=== PATIENT | female | born 1965 | race Caucasian/White ===

== ENCOUNTER → 2018-06-23 | Outpatient (CLI) | payer BC, SELFPAY | LOC: LAB.O 07:29 | PROVIDERS: ATTEND Internal Medicine Gastroenterology | DX: R10.10 Upper abdominal pain, unspecified (principal) ==

== ENCOUNTER → 2018-12-28 | Outpatient (CLI) | payer SELFPAY ==
--- NOTE | 2018-12-29 15:22 | MRI ---
EXAM DESCRIPTION: Lumbar Spine w/o Contrast : Magnetic Resonance Imaging. CLINICAL HISTORY: DORSALGIA CHRONIC BACK PAIN COMPARISON: None. TECHNIQUE: Multiplanar, multiple standard sequences, non contrast MRI, lumbar spine. FINDINGS: L5-S1: The disc is well visualized on axial T2 series 501, image 3. Disc space preserved with minimal disc desiccation. Posterior midline hyperintense T2 annular fissure in the margin with minimal bulge into the canal. AP canal diameter 13 mm. Mild left foraminal narrowing and moderate right foraminal narrowing. Bilateral L5 pars interarticularis sclerotic and thinned. Bilateral facets and ligaments unremarkable. L4-L5: Disc desiccation and minimal disc space loss. Posterior broad-based bulge and midline protrusion 5.5 mm. Facets are negative posterior ligament thickening with AP canal diameter 9 mm. Bilateral moderate foraminal narrowing more left than right. Bilateral subarticular recess narrowing by bulging disc. Trace retrolisthesis. L3-L4: Disc desiccation and minimal disc space loss with anterior bulging and minimal endplate reaction. Posterior asymmetric bulge to the right of midline 5 mm abutting the right subarticular recess and the exiting right L3 nerve in the foramen which is nearly stenotic. Mild narrowing left foramen. Bilateral facet joint effusion and thickened ligaments. AP canal diameter 12 mm. L2-L3: Anterior disc space loss with disc desiccation and moderate endplate reactive changes and disc space loss more right than left. Posterior broad-based disc bulge 4 mm. Posterior elements unremarkable. Mild right foraminal narrowing and left foramen patent. AP canal diameter 13 mm. Minimal narrowing of the bilateral subarticular recesses. L1-L2: Disc desiccation with disc space maintained. Schmorl's node inferior left posterior L1 endplate. Posterior right paracentral 4 mm disc bulge with endplate spurs. AP canal diameter 11 mm to the right of midline. Bilateral foramina are patent. T12-L1: Conus terminates just below the disc space. Minimal disc desiccation with disc space maintained. Concavities in the superior and inferior endplates. Posterior elements unremarkable. Canal and foramina are patent. Spine is kyphotic T12-L2 and minimal levoscoliosis T12- L3. Paravertebral soft tissues negative.. Distal cord normal signal and caliber. Normal marrow signal in the remaining vertebral bodies and the posterior elements. Vertebral bodies are not compressed at any level. IMPRESSION: 1. Multiple levels of disc desiccation and bulging. Minimal disease in the facets and ligaments. Canal narrowing at multiple levels. Upper spine is kyphotic. Minimal convexity to most of the endplates and some Schmorl's nodes. 2. Desiccated L5-S1 disc with posterior annular fissure. Minimal bulging. Bilateral L5 pars are sclerotic and thinned. 3. Mild central canal stenosis multifactorial at L4-L5 with posterior midline disc protrusion. Bilateral subarticular recess narrowing. Moderate foraminal narrowing and trace retrolisthesis. 4. Posterior bulge L3-4 disc and to the right Canal and right foramen abutting the exiting right L3 nerve in the foramen. Moderate canal narrowing. 5. Posterior broad-based bulge L2-3 disc and minimal narrowing of the subarticular recesses. Mild right foraminal narrowing. 6. Right paracentral bulge of the desiccated L1-L2 disc with moderate canal narrowing to the right of midline. Electronically signed by: Angelito Molina MD 12/29/2018 3:21 PM CDT
== END ==
LOC: MRI 10:00
PROVIDERS: ATTEND Family Medicine
DX: M40.205 Unspecified kyphosis, thoracolumbar region (principal); M51.36 Other intervertebral disc degeneration, lumbar region; M51.37 Other intervertebral disc degeneration, lumbosacral region; M51.86 Other intervertebral disc disorders, lumbar region; M43.16 Spondylolisthesis, lumbar region

== ENCOUNTER → 2019-01-31 | Outpatient (CLI) | payer SELFPAY | LOC: YCFC.O 14:03 | PROVIDERS: ATTEND Family Medicine | DX: M19.90 Unspecified osteoarthritis, unspecified site (principal) ==

== ENCOUNTER → 2019-06-28 | Outpatient (CLI) | payer SELFPAY ==
--- NOTE | 2019-06-28 15:50 | RAD ---
XR CHEST 2 VIEWS HISTORY: 54 years Female DYSPNEA COMPARISON: None. TECHNIQUE: PA and lateral views of the chest. FINDINGS: Lungs: Unremarkable. Heart/Mediastinum: Unremarkable. Bones: Unremarkable. IMPRESSION: Normal chest x-ray. Electronically signed by: Jean Paul Martinez MD 06/28/2019 3:49 PM CDT
== END ==
LOC: RAD 14:39
PROVIDERS: ATTEND Family Medicine
DX: R06.00 Dyspnea, unspecified (principal)

== ENCOUNTER → 2020-03-13 | Outpatient (CLI) | payer OTHER ==
--- NOTE | 2020-03-13 15:25 | RAD ---
EXAM DESCRIPTION: Thoracic Spine,AP Lateral CLINICAL HISTORY: 54 years Female, BACK PAIN COMPARISON: None. FINDINGS: 2 views of the thoracic spine show body fracture or subluxation. No disc space narrowing. No posterior rib abnormality. IMPRESSION: Negative exam. Electronically signed by: Gustavo Teague MD 03/13/2020 3:24 PM [facility]
--- NOTE | 2020-03-13 15:25 | RAD ---
EXAM DESCRIPTION: Cervical Spine, 2-3 Views CLINICAL HISTORY: 54 years Female, NECK PAIN COMPARISON: None. FINDINGS: 3 views of the cervical spine show no prevertebral soft tissue swelling. No vertebral body fracture. Grade 1 anterolisthesis at C4-5, likely degenerative. Degenerative disc disease at C5-6 and C6-7. The spinous processes are intact. Soft tissue calcifications in both sides of the neck likely vascular. IMPRESSION: [id number] multilevel degenerative changes worse at C5-6 and C6-7. Carotid artery disease. Electronically signed by: Gustavo Teague MD 03/13/2020 3:23 PM [facility]
== END ==
LOC: YCFC.O 07:13
PROVIDERS: ATTEND Family Medicine
DX: M50.322 Other cervical disc degeneration at C5-C6 level (principal); M50.323 Other cervical disc degeneration at C6-C7 level; I25.10 Atherosclerotic heart disease of native coronary artery without angina pectoris; K52.9 Noninfective gastroenteritis and colitis, unspecified; R53.83 Other fatigue; I10 Essential (primary) hypertension; M54.6 Pain in thoracic spine; Z13.220 Encounter for screening for lipoid disorders

== ENCOUNTER → 2020-03-22 | Outpatient (CLI) | payer OTHER ==
--- NOTE | 2020-03-23 13:15 | MRI ---
EXAM DESCRIPTION: Cervical Spine: MRI. CLINICAL HISTORY: 54 years Female CERVICALGIA COMPARISON: Duplex ultrasound of the carotid and vertebral vessels on this visit. Cervical spine radiographs March 13. TECHNIQUE: Multiplanar, high-field MRI, multiple sequences, non-contrast Cervical spine. FINDINGS: C3-C4: Normal signal in the disc. Tiny posterior midline bulge. Trace anterolisthesis. Left Uncinate spur. Hypertrophic arthrosis of the facet encroaching on the left, with neuroforaminal stenosis. C4-C5: Normal signal in the disc with disc space preserved. Trace anterolisthesis and posterior bulge. The disc is abutting the cord. Hypertrophic arthrosis of the left facet joint with mild narrowing of the neural foramen. Right facet joint and right neuroforamen are patent. C5-C6: Disc desiccation and moderate to severe disc space loss and anterior. Bulging and endplate ridging. Posterior broad-based bulge abutting the cord. Mild canal narrowing. Left uncinate spur with mild to moderate narrowing left neural foramen. Bilateral facet joints are unremarkable. Right neuroforamen is patent. C6-C7: Disc desiccation moderate to severe narrowing more anterior disc bulging. Posterior midline disc bulge but not abutting the cord. Bilateral facet joints are unremarkable. Mild canal narrowing. Bilateral neuroforamina are patent. Normal signal in the C2-C3 disc, C7-T1 disc, and T1-T2 disc with no bulging. Disc spaces preserved. Canal and neural foramina are patent. Facet joints are unremarkable. Spinal alignment kyphosis C4-C6. No cord compression or cord edema. Atlantoaxial joint negative.. Base of the cerebellar tonsils is above the foramen magnum. Paravertebral soft tissues are negative. Vertebral bodies are not compressed at any level. Otherwise normal marrow signal in the remaining vertebral bodies and the posterior elements. IMPRESSION: 1. C3-C4 left uncinate spur and hypertrophic facet arthrosis with left neural foraminal stenosis. Correlate for left C4 radiculopathy. 2. Left uncinate spur and mild to moderate narrowing of the left neural foramen. 3. Please refer to findings for discussion of results at specific disc space levels. Electronically signed by: Angelito Molina MD 03/23/2020 1:14 PM [facility]
--- NOTE | 2020-03-23 13:20 | US ---
EXAM DESCRIPTION: Carotid Duplex: ULTRASOUND. CLINICAL HISTORY: 54 years Female OCCLUSION AND STENOSIS OF CAROTID ARTERY COMPARISON: MRI scan of the cervical spine on this visit. TECHNIQUE: Transcutaneous scanning utilizing hood-scale and Doppler modes to evaluate the bilateral carotid systems and vertebral arteries. Percentage of diameter of stenosis or no stenosis recorded will be based upon NASCET criteria. FINDINGS: Peak systolic/end diastolic velocities (CM-Sec) CCA Right 74/25 Left 100/30. ICA Right proximal 68/21, distal 80/30. Left proximal 43/16, mid 110/24. Vertebral Right 69/18 Left 39/8. ECA (PS Only) Right 82 left 67. ICA/CCA peak systolic velocity ratio: Right 1.1 Left 1.1 ICA/CCA end diastolic velocity ratio: Right 1.2 Left 0.8. Vertebral arteries: antegrade flow. Comments: Atherosclerotic calcification in the bilateral CCAs, bilateral CCA bifurcations, and bilateral proximal ICAs. Area and diameter stenosis in the right carotid system is 20% or less. Area and diameter stenosis in the left carotid system is less than 35%. IMPRESSION: 1. Doppler evaluation of the bilateral carotid systems and vertebral arteries shows no hemodynamically significant stenoses (less than 70%). 2. No significant amount of plaque in the carotid arteries bilaterally. Bilateral vertebral arteries showed antegrade-cephalad flow. Electronically signed by: Angelito Molina MD 03/23/2020 1:18 PM [facility]
== END ==
LOC: US 09:48
PROVIDERS: ATTEND Family Medicine
DX: M47.892 Other spondylosis, cervical region (principal); M48.02 Spinal stenosis, cervical region; M43.12 Spondylolisthesis, cervical region; M50.322 Other cervical disc degeneration at C5-C6 level; M50.323 Other cervical disc degeneration at C6-C7 level; M50.81 Other cervical disc disorders, high cervical region; M50.821 Other cervical disc disorders at C4-C5 level; M50.822 Other cervical disc disorders at C5-C6 level; M50.823 Other cervical disc disorders at C6-C7 level; M25.78 Osteophyte, vertebrae; I65.23 Occlusion and stenosis of bilateral carotid arteries

== ENCOUNTER → 2020-03-29 | Outpatient (CLI) | payer OTHER | LOC: YCFC.O 12:35 | PROVIDERS: ATTEND Family Medicine | DX: Z87.440 Personal history of urinary (tract) infections (principal) ==